=== PATIENT | male | born 1970 | race Caucasian/White ===

== ENCOUNTER → 2017-12-15 | Outpatient (CLI) | payer OTHER ==
[~2017-12-15] MED LIST: DARVOCET-N 1001 EAC1 PO; FLEXERIL PO
== END ==
LOC: M.ULTRA 07:54
DX: R10.13 Epigastric pain (principal); R11.2 Nausea with vomiting, unspecified

== ENCOUNTER → 2018-01-05 | Outpatient (CLI) | payer OTHER | LOC: M.NUC 06:50 | DX: R10.13 Epigastric pain (principal); R11.2 Nausea with vomiting, unspecified ==

== ENCOUNTER 2020-10-04 19:50 | Emergency (ER) | payer OTHER ==
[~2020-10-04] VITALS: Ht 195.6 cm; Wt 86.2 kg
[2020-10-04] MEDS ORDERED: LIPITOR40 MG PO (20:07)
[2020-10-04] MEDS ORDERED: PROMETHAZINE-D473 M1 PO (20:07)
[2020-10-04] MEDS ORDERED: HYDROXYZINE HCL25 M2 PO (20:07)
[2020-10-04 20:32] LABS: ABSOLUTE BASOPHILS 0.1 thou/uL (0.0-0.2); ABSOLUTE EOSINOPHILS 0.2 thou/uL (0.0-0.7); ABSOLUTE LYMPHOCYTES 2.8 thou/uL (0.8-5.3); ABSOLUTE MONOCYTES 0.6 thou/uL (0.0-1.2); ABSOLUTE NEUTROPHILS 5.7 thou/uL (1.6-8.1); BASOPHILS 0.9 %; EOSINOPHILS 1.9 %; LYMPHOCYTES 29.8 %; MCH 34.5 pg (26.0-34.0); MCHC 35.2 g/dL (28.0-37.0); MCV 98.1 fL (80.0-100.0); MONOCYTES 6.4 %; MPV 8.4 fl. (7.2-11.1); NUCLEATED RBCS 0 /100WBC; PLATELET COUNT* 187 thou/uL (150-400); RBC 3.77 mil/uL (4.50-6.00); WBC 9.3 thou/uL (4.0-11.0)
[2020-10-04 20:41] LABS: CALCIUM 8.5 mg/dL (8.5-10.1); CREATININE 0.9 mg/dL (0.6-1.3)
[2020-10-04 20:43] LABS: PROTIME 10.4 Seconds (9.20-11.50)
[2020-10-04 20:52] LABS: ALBUMIN 3.3 g/dL (3.4-5.0); MAGNESIUM 2.2 mg/dL (1.8-2.4); TOTAL BILIRUBIN 0.3 mg/dL (<0.1-1.0); TOTAL PROTEIN 6.8 g/dL (6.4-8.2)
[2020-10-04 23:23] VITALS: BP 122/54
--- NOTE | 2020-10-05 10:02 | EKG ---
[place] [address] ELECTROCARDIOGRAM REPORT Name: HANY LOREDO Room: [facility]#: [id number] Admission: 10/04/20 Attend Phys: Discharge: 10/04/20 Date of : 66 Date of Service: 10/04/201950 Report #: [id number] THIS REPORT FOR: //name// [facility] ED Test Date: 2020-10-04 Test Time: 19:51:11 Pat Name: HANY LOREDO Department: Room: Gender: M [employer] Machine: : 1970 Requested By: Karina Garcia Order Number: [id number] MD: Tim Evangelista Measurements Intervals [place] Rate: 68 P: 0 [place]: 186 QRS: 37 QRSD: 82 T: 27 QT: 351 QTc: 374 Interpretive Statements Sinus rhythm ST elev, probable normal early repol pattern No previous ECG available for comparison Electronically Signed On 10-05-2020 10:01:50 CDT by Tim Evangelista [email or web address] <ELECTRONICALLY SIGNED> By: Tim Evangelista MD, [facility] 10/05/201000 50 50 Tim Evangelista MD, [facility] /EPI
== END 2020-10-04 23:25 | disposition home or self-care (01) ==
LOC: M.ERS 19:50
PROVIDERS: Emergency Medicine
DX: R42 Dizziness and giddiness (principal); R07.89 Other chest pain; K21.9 Gastro-esophageal reflux disease without esophagitis; Z79.899 Other long term (current) drug therapy